=== PATIENT | female | born 1975 | race Two or more races ===

== ENCOUNTER 2017-03-26 07:46 | Day surgery (SDC) | payer MEDICAID, OTHER ==
[2017-03-26] MEDS ORDERED: ALTEPLASE 2 MG VIAL IVP PRN (07:56)
[2017-03-26] MEDS ORDERED: fentaNYL 100 MCG/2 ML INJ IVP PRN (07:56)
[2017-03-26] MEDS ORDERED: FLUMAZENIL 0.5 MG/5 ML MDV IVP PRN (07:56)
[2017-03-26] MEDS ORDERED: MEPERIDINE 25 MG/ML SYR IVP PRN (07:56)
[2017-03-26] MEDS ORDERED: MIDAZOLAM 2 MG/2 ML VIAL IVP PRN (07:56)
[2017-03-26] MEDS ORDERED: HEPARIN 10,000 UNIT/10 ML MDV IVP PRN (07:56)
[2017-03-26] MEDS ORDERED: GLUCAGON HCL 1 MG VIAL IVP PRN (07:56)
[2017-03-26] MEDS ORDERED: NALOXONE HCL 0.4 MG/ML INJ IVP PRN (07:56)
[2017-03-26] MEDS ORDERED: PROTAMINE SULFATE 50 MG/5 ML VIAL IVP PRN (07:56)
[2017-03-26] MEDS ORDERED: NS 1,000 ML IV SCH (08:00)
[2017-03-26 08:28] VITALS: PULSE 82; RESP 16; TEMP 98.1
[2017-03-26] MEDS ORDERED: MIDAZOLAM 2 MG/2 ML VIAL ONE (09:04)
[2017-03-26] MEDS ORDERED: fentaNYL 100 MCG/2 ML INJ ONE (09:04)
[2017-03-26] MEDS ORDERED: HEPARIN 10,000 UNIT/10 ML MDV ONE (09:34)
[2017-03-26] MEDS ORDERED: IOPAMIDOL (ISOVUE-300) 100 ML BTL ONE (09:56)
--- NOTE | 2017-03-26 10:21 | PDGENHP ---
History & Physical Chief Complaint: LUE AVF not working well History of Present Illness: 42 yo F ho SLE and ESRD on HD via LUE AVF placed Feb 2016 p/w poorly functioning LUE AVF. Described as not enough blood or low flow by patient. Has had issues with the AVF not working well in the past and has required to 2 fistulograms at an OSH. Unsure what interventions were performed during those visits. Pertinent Past, Social, Family History: Non-contributory Relevant Physical Exam: Palpable thrill over proximal graft which gradually tapers moving proximally Cardiorespiratory Assessment: RRR, normal resp effort
--- NOTE | 2017-03-26 10:23 | PDPROPOC ---
Sedation Plan of Care Sedation Plan of Care: vital signs stable, mental status noted, patient educated of risks, benefits, alternatives, patient can tolerate sedation ASA Classification: ASA 3 Planned drugs: fentanyl, midazolam Mallampati Score: Class 1 Mallampati Reference Image: Patient passed 3-3-2 rule?: Yes
--- NOTE | 2017-03-26 10:24 | PDRADPN ---
Radiology Procedure Note Date of Procedure: 03/26/17 Radiologist: David Gomes Anesthesia: IV Sedation Pre-op Diagnosis: ESRD on HD, poorly functioning AVF Post-op Diagnosis: Same Indication: Poorly functioning AVF Procedure: Fistulogram, central venogram, fistuloplasty Finding(s): See dictated report Inf/Abcess present in the surg proc area at time of surgery?: No EBL: Minimal Complications: No immediate
[2017-03-26] MEDS ORDERED: ONDANSETRON 4 MG/2 ML VIAL IVP PRN (11:18)
[2017-03-26] MEDS ORDERED: OXYCODONE/APAP 5/325 TAB PO PRN (11:18)
[2017-03-26 12:10] VITALS: BP 118/77; O2SAT 94
== END 2017-03-26 12:02 | disposition home or self-care (01) ==
LOC: FIMAGING 07:46
PROVIDERS: ATTEND Internal Medicine Nephrology
PROC: 03783DZ Dilation of Left Brachial Artery with Intraluminal Device, Percutaneous Approach (ICD-10-PCS; principal; 2017-03-26 10:26)
DX: T82.598A Other mechanical complication of other cardiac and vascular devices and implants, initial encounter (principal); N18.6 End stage renal disease
CPT/HCPCS: 36902; 99152; C1769; C1894; C1725; J1644; J2250; J3010; Q9967

== ENCOUNTER 2018-07-02 09:41 | Day surgery (SDC) | payer MEDICAID, OTHER ==
[2018-07-02] MEDS ORDERED: HEPARIN 10,000 UNIT/10 ML MDV (1,000 UNIT/ML) IVP PRN (09:55)
[2018-07-02] MEDS ORDERED: PROTAMINE SULFATE 50 MG/5 ML VIAL IVP PRN (09:55)
[2018-07-02] MEDS ORDERED: NALOXONE HCL 0.4 MG/ML INJ IVP PRN (09:55)
[2018-07-02] MEDS ORDERED: FLUMAZENIL 0.5 MG/5 ML MDV IVP PRN (09:55)
[2018-07-02] MEDS ORDERED: fentaNYL 100 MCG/2 ML INJ IVP PRN (09:55)
[2018-07-02] MEDS ORDERED: MEPERIDINE 25 MG/ML SYR IVP PRN (09:55)
[2018-07-02] MEDS ORDERED: MIDAZOLAM 2 MG/2 ML VIAL IVP PRN (09:55)
[2018-07-02] MEDS ORDERED: NS 1,000 ML IV SCH (10:00)
[2018-07-02 10:18] VITALS: BP 115/86
[2018-07-02] MEDS ORDERED: IOPAMIDOL (ISOVUE-300) 100 ML BTL ONE ×2 (12:05→12:57)
[2018-07-02] MEDS ORDERED: HEPARIN 10,000 UNIT/10 ML MDV (1,000 UNIT/ML) ONE (12:15)
[2018-07-02] MEDS ORDERED: PROTAMINE SULFATE 50 MG/5 ML VIAL IVP ONE (13:26)
== END 2018-07-02 15:00 | disposition home or self-care (01) ==
LOC: FIMAGING 09:41
PROVIDERS: ATTEND Internal Medicine Nephrology
PROC: 05783ZZ Dilation of Left Axillary Vein, Percutaneous Approach (ICD-10-PCS; principal; 2018-07-02 14:00)
PROC: 03783ZZ Dilation of Left Brachial Artery, Percutaneous Approach (ICD-10-PCS; principal; 2018-07-02 14:00)
DX: N18.6 End stage renal disease (principal); L76.22 Postprocedural hemorrhage of skin and subcutaneous tissue following other procedure
CPT/HCPCS: C1725; C1769; C1894; J1644; J2250; J2310; J2720; J3010; Q9967